=== PATIENT | female | born 1950 | race Caucasian/White ===

== ENCOUNTER 2017-06-13 20:25 | Emergency (ER) | payer MEDICARE, BC ==
--- NOTE | 2017-06-13 20:38 | UC ---
Complaint Female HPI - HPI Summary HPI Summary: 67 YEAR OLD FEMALE PRESENTS WITH COMPLAINS OF BLOOD IN HER URINE - History Of Current Complaint Stated Complaint: HEMATURIA Time Seen by Provider: 06/13/17 20:37 Hx Obtained From: Patient Hx Last Menstrual Period: "Years ago." Onset/Duration: Sudden Onset Timing: Intermittent Severity Initially: Moderate Severity Currently: Moderate - Allergies/Home Medications Allergies/Adverse Reactions: Allergies Allergy/AdvReac Type Severity Reaction Status Date / Time Penicillins Allergy Intermediate RASH, Verified 06/13/17 20:41 ICHING Sulfa Antibiotics Allergy Intermediate Itching Verified 06/13/17 20:41 PMH/Surg Hx/FS Hx/Imm Hx Previously Healthy: Yes Other History Of: Negative For: HIV, Hepatitis B, Hepatitis C - Surgical History Surgical History: Yes Surgery Procedure, Year, and Place: HYSTERECTOMY. THYROIDECTOMY- PARTIAL - Family History Known Family History: Positive: Cardiac Disease Negative: Renal Disease, Blood Disorder - Social History Alcohol Use: None Substance Use Type: None Smoking Status (MU): Never Smoked Tobacco Review of Systems Constitutional: Negative Skin: Negative Eyes: Negative ENT: Negative Respiratory: Negative Cardiovascular: Negative Gastrointestinal: Negative Genitourinary: Hematuria Motor: Negative Neurovascular: Negative Musculoskeletal: Negative Neurological: Negative Psychological: Negative All Other Systems Reviewed And Are Negative: Yes Physical Exam Triage Information Reviewed: Yes Eye Exam: Normal ENT Exam: Normal Dental Exam: Normal Neck exam: Normal Neck: Positive: 1 Respiratory Exam: Normal Cardiovascular Exam: Normal Abdominal Exam: Normal Musculoskeletal Exam: Normal Neurological Exam: Normal Psychological Exam: Normal Skin Exam: Normal Complaint Female Dx - Differential Dx/Diagnosis Provider Diagnoses: HEMATURIA Discharge - Discharge Plan Condition: Stable Disposition: HOME Prescriptions: Nitrofurantoin Monohyd Macro [Macrobid] 100 mg PO BID #14 cap Patient Education Materials: Hematuria (ED) Referrals: [facility] [Primary Care Provider] -
[2017-06-13 20:47] VITALS: BP 121/85
[2017-06-13] MEDS ORDERED: Nitrofurantoin Macrocrystals* 50 MG CAP PO ONE (20:57)
--- NOTE | 2017-06-16 07:29 | ED ---
Progress - Progress Note Progress Note: no change.ucx pending. Course/Dx - Diagnoses Provider Diagnoses: UTI (urinary tract infection)
== END 2017-06-13 21:09 | disposition home or self-care (01) ==
LOC: UCCORT 20:25
DX: N39.0 Urinary tract infection, site not specified (principal); B96.1 Klebsiella pneumoniae [K. pneumoniae] as the cause of diseases classified elsewhere; R31.9 Hematuria, unspecified; Z90.710 Acquired absence of both cervix and uterus; E89.0 Postprocedural hypothyroidism; Z88.0 Allergy status to penicillin; Z88.2 Allergy status to sulfonamides
CPT/HCPCS: 81003; 87077; 87086; 87186; 99212; A9270-GY; G0463

== ENCOUNTER 2017-07-02 09:38 | Emergency (ER) | payer MEDICARE, BC ==
[2017-07-02 10:05] VITALS: BP 122/72
--- NOTE | 2017-07-02 10:47 | ED ---
Back Pain - HPI Summary HPI Summary: fall two days ago and she hit left flank area. it was doing better until this morning when the pain got worse. There is pain with change in position, cough, and deep breaths. no cough or sob. There is no hematuria. no head injury or neck pain. - History of Current Complaint Chief Complaint: UCBackPain Stated Complaint: BACK PAIN,FALL Time Seen by Provider: 07/02/17 09:54 Hx Obtained From: Patient Hx Last Menstrual Period: "Years ago." Onset/Duration: Gradual Onset, Lasting Days Onset/Duration: Started Days Ago, Traumatic Timing: Constant Back Pain Location: Is Discrete @ Severity Initially: Moderate Severity Currently: Severe Character: Dull, Aching Aggravating Symptom(s): Movement, Lifting, Walking, Cough Alleviating Symptom(s): Rest, Position Associated Signs And Symptoms: Positive: Negative - Allergies/Home Medications Allergies/Adverse Reactions: Allergies Allergy/AdvReac Type Severity Reaction Status Date / Time Penicillins Allergy Intermediate RASH, Verified 07/02/17 09:46 ICHING Sulfa Antibiotics Allergy Intermediate Itching Verified 07/02/17 09:46 Home Medications: Home Medications Cholecalciferol [D3] 400 unit PO DAILY 07/02/17 [History Confirmed 07/02/17] Clonazepam 0.5 mg PO BEDTIME 07/02/17 [History Confirmed 07/02/17] PMH/Surg Hx/FS Hx/Imm Hx Previously Healthy: No - afib. parkinsons. Endocrine/Hematology History: Reports: Hx Thyroid Disease - HYPO Denies: Hx Diabetes Cardiovascular History: Denies: Hx Congestive Heart Failure, Hx Deep Vein Thrombosis, Hx Hypertension , Hx Myocardial Infarction, Hx Pacemaker/ICD Respiratory History: Denies: Hx Asthma, Hx Chronic Obstructive Pulmonary Disease (COPD), Hx Lung Cancer, Hx Pneumonia, Hx Pulmonary Embolism GI History: Denies: Hx Gall Bladder Disease, Hx Gastrointestinal Bleed, Hx Ulcer, Hx Urosepsis History: Denies: Hx Kidney Stones, Hx Renal Disease Neurological History: Reports: Other Neuro Impairments/Disorders - Parkinson's disease Denies: Hx Dementia, Hx Migraine, Hx Seizures, Hx Transient Ischemic Attacks (TIA) Psychiatric History: Denies: Hx Anxiety, Hx Depression, Hx Schizophrenia, Hx Bipolar Disorder - Cancer History Hx Radiation Therapy: No - Surgical History Surgery Procedure, Year, and Place: HYSTERECTOMY. THYROIDECTOMY- PARTIAL Infectious Disease History: Yes Infectious Disease History: Reports: Hx Shingles Denies: Traveled Outside the [place] in Last 30 Days - Family History Known Family History: Positive: Cardiac Disease Negative: Renal Disease, Blood Disorder - Social History Alcohol Use: None Substance Use Type: Reports: None Smoking Status (MU): Former Smoker Review of Systems Positive: Other - contusion left ribs. All Other Systems Reviewed And Are Negative: Yes Physical Exam Triage Information Reviewed: Yes Vital Signs On Initial Exam: Initial Vitals Temp Pulse Resp BP Pulse Ox 97.8 F 69 18 122/72 98 07/02/17 09:50 07/02/17 09:50 07/02/17 09:50 07/02/17 09:50 07/02/17 09:50 Vital Signs Reviewed: Yes Appearance: Positive: Well-Appearing, Pain Distress - she is pleasant and jovial but has obvious stiffness and it is hard to change positions for exam. Skin: Positive: Other - no bruising of the ribs or flank. no deformity. Head/Face: Positive: Normal Head/Face Inspection Eyes: Positive: Normal, EOMI. Negative: BHUPENDRA ENT: Positive: Normal ENT inspection Neck: Positive: Supple, Nontender, No Lymphadenopathy Respiratory/Lung Sounds: Positive: Clear to Auscultation, Breath Sounds Present. Negative: Decreased Breath Sounds, Rales, Rhonchi, Subcutaneous Emphysema, Stridor, Tracheal Deviation, Wheezes Cardiovascular: Positive: Normal, RRR, Pulses are Symmetrical in both Upper and Lower Extremities. Negative: Leg Edema Left, Leg Edema Right Abdomen Description: Positive: Nontender, No Organomegaly, Soft Musculoskeletal: Positive: Other - left flank tenderness and right lateral rib tenderness. no deformity or bruising.. Negative: Edema Left, Edema Right Neurological: Positive: Normal, Sensory/Motor Intact, Alert, Oriented to Person Place, Time, CN Intact II-III Psychiatric: Positive: Normal, Affect/Mood Appropriate Diagnostics - Vital Signs Vital Signs Temp Pulse Resp BP Pulse Ox 07/02/17 09:50 97.8 F 69 18 122/72 98 - Laboratory Lab Statement: Any lab studies that have been ordered have been reviewed, and results considered in the medical decision making process. Back Pain Course/Dx - Course Course Of Treatment: no hematuria. pain is worse on day #3. we offerred rib x rays but she wanted to hold off for now. pain controll discussed. she will be aware of symptoms of pneumonia and return for re eval if needed. - Diagnoses Provider Diagnoses: Fall (on) (from) other stairs and steps, initial encounter, Contusion of rib on left side Discharge - Discharge Plan Condition: Good Disposition: HOME Prescriptions: traMADol TAB* [Ultram*] 50 mg PO Q12H PRN #10 tab MDD 2 PRN Reason: Pain Patient Education Materials: Rib Contusion (ED) Referrals: [facility] [Primary Care Provider] - If Needed Additional Instructions: return for any signs of pneumonia such as cough, sob, fever.
== END 2017-07-02 10:46 | disposition home or self-care (01) ==
LOC: UCCORT 09:38
DX: M54.5 Low back pain (principal); J44.9 Chronic obstructive pulmonary disease, unspecified; I48.91 Unspecified atrial fibrillation; G20 Parkinson's disease; W19.XXXA Unspecified fall, initial encounter
CPT/HCPCS: 99212; G0463